=== PATIENT | male | born 1955 | race Caucasian/White ===

== ENCOUNTER 2021-11-14 06:30 | Inpatient (IN) ==
[2021-11-14] MEDS ORDERED: Lidocaine HCL 4 ML Topical Solution (Laryng-O-Jet Kit Sterile Pak) TP ONE (07:44)
[2021-11-14] MEDS ORDERED: Lidocaine -MPF 2% 5 ML VIAL ONE (07:47)
[2021-11-14] MEDS ORDERED: *HR* FentaNYL (PF) 100 MCG/2 ML VIAL ONE (07:47)
[2021-11-14] MEDS: Ringers Solution, Lactated 1,000 ML IVC SCH (07:49)
[2021-11-14] MEDS ORDERED: *HR* Succinylcholine 200 MG/10 ML VIAL IVP ONE (07:51)
[2021-11-14] MEDS ORDERED: Ondansetron 4 MG/2 ML VIAL ONE (07:52)
[2021-11-14] MEDS ORDERED: *HR* Rocuronium Bromide 50 MG/5 ML VIAL ONE (08:16)
[2021-11-14] MEDS ORDERED: EPHEDrine 50 MG/ML VIAL ONE (09:08)
[2021-11-14] MEDS ORDERED: Lidocaine -MPF 2% 2 ML VIAL IH ONE (09:17)
[2021-11-14] MEDS ORDERED: *HR* Vasopressin 20 UNIT/ML VIAL ONE (09:45)
[2021-11-14] MEDS ORDERED: Naloxone 0.4 MG/ML INJ IVP PRN (09:57)
[2021-11-14] MEDS ORDERED: Acetaminophen 325 MG TABLET PO PRN (09:57)
[2021-11-14] MEDS ORDERED: Albuterol 2.5 MG/3 ML NEBULIZER IH SCH (10:00)
[2021-11-14] MEDS ORDERED: Albuterol 2.5 MG/3 ML NEBULIZER IH PRN (10:29)
[2021-11-14] MEDS: predniSONE 20 MG TABLET PO SCH (10:38)
[2021-11-14] MEDS: Budesonide/Formoterol 160/4.5 1 PUFF INH IH SCH ×2 (11:03→22:42)
[2021-11-14 11:28] LABS: Basophils # 0.1 K/mcL (0.0-0.2); Basophils % 0.4 %; Eosinophils # 0.1 K/mcL (0.0-0.6); Eosinophils % 0.6 %; Hematocrit 34.6 % (37.5-50.1); Hemoglobin 10.1 g/dL (12.9-16.9); Immature Granulocytes % 1.5 % (0-4); Lymphocytes # 1.1 K/mcL (0.6-4.6); Lymphocytes % 8.2 %; Mean Corpuscular HGB Conc 29.2 g/dL (31.6-35.5); Mean Corpuscular Hemoglobin 20.8 pg (28.0-33.3); Mean Corpuscular Volume 71.2 fL (83.0-100.0); Mean Platelet Volume 9.2 fL (9.4-12.4); Monocytes # 0.6 K/mcL (0.0-1.3); Monocytes % 4.3 %; Neutrophils # 11.6 K/mcL (1.6-8.9); Platelet Count 379 K/mcL (140-400); Red Blood Count 4.86 M/mcL (4.19-5.50); White Blood Count 13.6 K/mcL (4.3-11.1)
[2021-11-14 11:47] LABS: Calcium 9.6 mg/dL (8.6-10.3); Potassium 4.7 mEq/L (3.5-5.1)
[2021-11-14] MEDS ORDERED: GuaiFENesin/Codeine Oral Soln 5 ML UDC PO SCH (12:00)
[2021-11-14] MEDS: GuaiFENesin/Codeine Oral Soln 5 ML UDC PO SCH ×2 (14:32→19:48)
[2021-11-14] MEDS: Sennosides/Docusate Sodium TABLET PO SCH (19:48)
[2021-11-15 02:04] LABS: Basophils % 0.1 %; Hematocrit 37.2 % (37.5-50.1); Hemoglobin 10.9 g/dL (12.9-16.9); Immature Granulocytes % 0.5 % (0-4); Lymphocytes # 0.9 K/mcL (0.6-4.6); Lymphocytes % 7.9 %; Mean Corpuscular HGB Conc 29.3 g/dL (31.6-35.5); Mean Corpuscular Hemoglobin 20.8 pg (28.0-33.3); Mean Corpuscular Volume 71.1 fL (83.0-100.0); Mean Platelet Volume 9.1 fL (9.4-12.4); Monocytes # 0.7 K/mcL (0.0-1.3); Monocytes % 6.4 %; Neutrophils # 9.6 K/mcL (1.6-8.9); Platelet Count 421 K/mcL (140-400); Red Blood Count 5.23 M/mcL (4.19-5.50); Red Cell Distribution Width 19.1 % (11.5-14.5); Segmented Neutrophils % 85.1 %; White Blood Count 11.2 K/mcL (4.3-11.1)
[2021-11-15 02:15] LABS: Calcium 9.5 mg/dL (8.6-10.3); Magnesium 2.1 mg/dL (1.6-2.6); Potassium 4.6 mEq/L (3.5-5.1)
[2021-11-15] MEDS ORDERED: *HR* Enoxaparin 40 MG/0.4 ML SYRINGE SQ SCH (06:00)
[2021-11-15] MEDS: Budesonide/Formoterol 160/4.5 1 PUFF INH IH SCH ×2 (07:39→20:11)
[2021-11-15] MEDS: GuaiFENesin/Codeine Oral Soln 5 ML UDC PO SCH ×2 (07:53→08:10)
[2021-11-15] MEDS: Sennosides/Docusate Sodium TABLET PO SCH ×2 (08:01→21:07)
[2021-11-15 08:02] LABS: Basophils % 0.1 %; Immature Granulocytes % 0.4 % (0-4); Mean Platelet Volume 9.3 fL (9.4-12.4)
[2021-11-15] MEDS: predniSONE 20 MG TABLET PO SCH (08:03)
[2021-11-15] MEDS: Ringers Solution, Lactated 1,000 ML IVC SCH (08:03)
[2021-11-15 08:04] LABS: Hematocrit 38.5 % (37.5-50.1); Hemoglobin 11.2 g/dL (12.9-16.9); Lymphocytes % 6.6 %; Mean Corpuscular HGB Conc 29.1 g/dL (31.6-35.5); Mean Corpuscular Hemoglobin 20.7 pg (28.0-33.3); Mean Corpuscular Volume 71.3 fL (83.0-100.0); Monocytes # 1.4 K/mcL (0.0-1.3); Monocytes % 9.1 %; Neutrophils # 13.2 K/mcL (1.6-8.9); Platelet Count 478 K/mcL (140-400); Red Cell Distribution Width 19.3 % (11.5-14.5); Segmented Neutrophils % 83.8 %; White Blood Count 15.8 K/mcL (4.3-11.1)
[2021-11-15 08:21] LABS: Calcium 9.9 mg/dL (8.6-10.3); Potassium 4.6 mEq/L (3.5-5.1)
[2021-11-15 08:43] LABS: Phosphorous 2.6 mg/dL (2.7-4.5)
[2021-11-15] MEDS ORDERED: Furosemide 20 MG TABLET PO SCH (09:00)
[2021-11-15] MEDS ORDERED: DilTIAZem CD (24hr) 240 MG CAP.ER.24H PO SCH (09:00)
[2021-11-15] MEDS ORDERED: Azithromycin 250 MG TABLET PO SCH (09:00)
[2021-11-15] MEDS ORDERED: DALIRESP 500MCG PO SCH (09:00)
[2021-11-15] MEDS ORDERED: lisinopriL 5 MG TABLET PO SCH (09:00)
[2021-11-15] MEDS ORDERED: GuaiFENesin/Codeine Oral Soln 5 ML UDC PO PRN (10:52)
[2021-11-15] MEDS ORDERED: Acetaminophen 325 MG TABLET PO PRN (12:04)
[2021-11-15] MEDS ORDERED: Albuterol 2.5 MG/3 ML NEBULIZER IH PRN (12:04)
[2021-11-15] MEDS ORDERED: Naloxone 0.4 MG/ML INJ IVP PRN (12:04)
[2021-11-15] MEDS: *HR* Rivaroxaban 10 MG TABLET PO SCH (16:11)
[2021-11-15] MEDS ORDERED: *HR* Rivaroxaban 10 MG TABLET PO SCH (17:00)
[2021-11-15] MEDS ORDERED: Melatonin 3 MG TABLET PO PRN (20:01)
[2021-11-16] MEDS: GuaiFENesin/Codeine Oral Soln 5 ML UDC PO PRN (03:41)
[2021-11-16 05:58] LABS: Basophils % 0.2 %; Eosinophils % 0.1 %; Segmented Neutrophils % 75.1 %
[2021-11-16 06:00] LABS: Hematocrit 34.9 % (37.5-50.1); Hemoglobin 10.1 g/dL (12.9-16.9); Immature Granulocytes % 0.7 % (0-4); Lymphocytes # 1.9 K/mcL (0.6-4.6); Lymphocytes % 11.4 %; Mean Corpuscular HGB Conc 28.9 g/dL (31.6-35.5); Mean Corpuscular Volume 72.4 fL (83.0-100.0); Mean Platelet Volume 9.4 fL (9.4-12.4); Monocytes # 2.1 K/mcL (0.0-1.3); Monocytes % 12.5 %; Neutrophils # 12.4 K/mcL (1.6-8.9); Platelet Count 424 K/mcL (140-400); Red Blood Count 4.82 M/mcL (4.19-5.50); Red Cell Distribution Width 19.2 % (11.5-14.5); White Blood Count 16.5 K/mcL (4.3-11.1)
[2021-11-16 06:36] LABS: Anisocytosis 1+ (Not Present); Hypochromasia Present (Not Present); Ovalocytes 1+ (Not Present); Platelet Estimate Normal (Normal)
[2021-11-16 06:52] LABS: Calcium 9.2 mg/dL (8.6-10.3)
[2021-11-16] MEDS: Budesonide/Formoterol 160/4.5 1 PUFF INH IH SCH ×2 (07:25→22:45)
[2021-11-16] MEDS: predniSONE 20 MG TABLET PO SCH (09:00)
[2021-11-16] MEDS ORDERED: Furosemide 20 MG TABLET PO SCH (09:00)
[2021-11-16] MEDS: DilTIAZem CD (24hr) 240 MG CAP.ER.24H PO SCH (09:00)
[2021-11-16] MEDS: Sennosides/Docusate Sodium TABLET PO SCH ×2 (09:01→21:47)
[2021-11-16] MEDS: Azithromycin 250 MG TABLET PO SCH (09:01)
[2021-11-16] MEDS: Furosemide 20 MG TABLET PO SCH (09:01)
[2021-11-16] MEDS: lisinopriL 5 MG TABLET PO SCH (09:02)
[2021-11-16] MEDS: *HR* Rivaroxaban 10 MG TABLET PO SCH (21:47)
[2021-11-17] MEDS ORDERED: *HR* Metoprolol 5 MG/5 ML VIAL IVP ONE ×2 (00:56→08:39)
[2021-11-17 06:03] LABS: Basophils % 0.2 %; Hematocrit 38.3 % (37.5-50.1)
[2021-11-17 06:05] LABS: Eosinophils # 0.1 K/mcL (0.0-0.6); Eosinophils % 0.3 %; Hemoglobin 11.1 g/dL (12.9-16.9); Immature Granulocytes % 0.7 % (0-4); Lymphocytes # 2.9 K/mcL (0.6-4.6); Lymphocytes % 16.4 %; Mean Corpuscular Hemoglobin 20.9 pg (28.0-33.3); Mean Corpuscular Volume 72.3 fL (83.0-100.0); Mean Platelet Volume 9.5 fL (9.4-12.4); Monocytes % 11.5 %; Neutrophils # 12.4 K/mcL (1.6-8.9); Platelet Count 472 K/mcL (140-400); Red Cell Distribution Width 19.1 % (11.5-14.5); Segmented Neutrophils % 70.9 %; White Blood Count 17.5 K/mcL (4.3-11.1)
[2021-11-17] MEDS: GuaiFENesin/Codeine Oral Soln 5 ML UDC PO PRN (06:07)
[2021-11-17 06:40] LABS: Anisocytosis 1+ (Not Present); Hypochromasia Present (Not Present)
[2021-11-17 06:41] LABS: Ovalocytes 1+ (Not Present)
[2021-11-17 06:57] LABS: BUN/Creatinine Ratio 24 (6-26); Blood Urea Nitrogen 21 mg/dL (8-23); Calcium 9.5 mg/dL (8.6-10.3); Carbon Dioxide 31 mEq/L (23-29); Chloride 102 mEq/L (98-107); Glucose 89 mg/dL (70-105); Osmolality,Calculated 290 (280-300); Potassium 3.8 mEq/L (3.5-5.1); Sodium 139 mEq/L (136-145)
[2021-11-17] MEDS: predniSONE 20 MG TABLET PO SCH (07:19)
[2021-11-17] MEDS: Azithromycin 250 MG TABLET PO SCH (07:19)
[2021-11-17] MEDS: Sennosides/Docusate Sodium TABLET PO SCH ×2 (07:20→21:03)
[2021-11-17] MEDS: Furosemide 20 MG TABLET PO SCH (07:20)
[2021-11-17] MEDS: DilTIAZem CD (24hr) 240 MG CAP.ER.24H PO SCH (07:20)
[2021-11-17] MEDS: lisinopriL 5 MG TABLET PO SCH (07:21)
[2021-11-17] MEDS: Budesonide/Formoterol 160/4.5 1 PUFF INH IH SCH ×2 (08:14→20:27)
[2021-11-17] MEDS ORDERED: Ipratropium/Albuterol Neb 3 ML ONE (11:47)
[2021-11-17] MEDS: Ipratropium/Albuterol Neb 3 ML IH SCH ×3 (11:49→20:27)
[2021-11-17] MEDS: *HR* Rivaroxaban 10 MG TABLET PO SCH (16:26)
[2021-11-17] MEDS: *HR* Digoxin 0.5 MG/2 ML AMPUL IVP SCH ×2 (16:26→20:57)
[2021-11-18] MEDS: *HR* Digoxin 0.5 MG/2 ML AMPUL IVP SCH ×2 (01:31→07:05)
[2021-11-18 02:49] LABS: Basophils # 0.1 K/mcL (0.0-0.2); Basophils % 0.3 %; Eosinophils # 0.1 K/mcL (0.0-0.6); Eosinophils % 0.5 %; Hematocrit 36.6 % (37.5-50.1); Hemoglobin 10.7 g/dL (12.9-16.9); Immature Granulocytes % 0.5 % (0-4); Lymphocytes % 17.9 %; Mean Corpuscular HGB Conc 29.2 g/dL (31.6-35.5); Mean Corpuscular Hemoglobin 20.9 pg (28.0-33.3); Mean Corpuscular Volume 71.3 fL (83.0-100.0); Mean Platelet Volume 9.7 fL (9.4-12.4); Monocytes % 12.3 %; Neutrophils # 11.3 K/mcL (1.6-8.9); Platelet Count 489 K/mcL (140-400); Red Blood Count 5.13 M/mcL (4.19-5.50); Segmented Neutrophils % 68.5 %; White Blood Count 16.6 K/mcL (4.3-11.1)
[2021-11-18 03:10] LABS: Calcium 8.8 mg/dL (8.6-10.3); Potassium 3.8 mEq/L (3.5-5.1)
[2021-11-18] MEDS: Ipratropium/Albuterol Neb 3 ML IH SCH ×2 (04:06→10:35)
[2021-11-18] MEDS: Azithromycin 250 MG TABLET PO SCH (07:03)
[2021-11-18] MEDS: DilTIAZem CD (24hr) 240 MG CAP.ER.24H PO SCH (07:03)
[2021-11-18] MEDS: predniSONE 20 MG TABLET PO SCH (07:03)
[2021-11-18] MEDS: Furosemide 20 MG TABLET PO SCH (07:04)
[2021-11-18] MEDS: Sennosides/Docusate Sodium TABLET PO SCH ×2 (07:05→19:25)
[2021-11-18] MEDS ORDERED: Furosemide 40 MG in 0.9 % Sodium Chloride 50 ML IV SCH (10:00)
[2021-11-18] MEDS: Budesonide/Formoterol 160/4.5 1 PUFF INH IH SCH ×2 (10:35→22:15)
[2021-11-18] MEDS: *HR* Digoxin 0.125 MG TABLET PO SCH (11:26)
[2021-11-18] MEDS: Furosemide 40 MG/4 ML VIAL IVP SCH (11:26)
[2021-11-18] MEDS ORDERED: Ipratropium/Albuterol Neb 3 ML IH SCH (15:00)
[2021-11-18] MEDS: *HR* Rivaroxaban 10 MG TABLET PO SCH (17:18)
[2021-11-18] MEDS ORDERED: Levalbuterol Neb 1.25 MG/3 ML IH PRN (18:10)
[2021-11-18] MEDS: Levalbuterol Neb 1.25 MG/3 ML IH SCH (22:16)
[2021-11-19 02:57] LABS: Basophils % 0.3 %; Eosinophils # 0.2 K/mcL (0.0-0.6); Hematocrit 35.8 % (37.5-50.1); Hemoglobin 10.4 g/dL (12.9-16.9); Immature Granulocytes % 0.8 % (0-4); Lymphocytes # 3.1 K/mcL (0.6-4.6); Mean Corpuscular HGB Conc 29.1 g/dL (31.6-35.5); Mean Corpuscular Hemoglobin 20.7 pg (28.0-33.3); Mean Corpuscular Volume 71.3 fL (83.0-100.0); Mean Platelet Volume 9.4 fL (9.4-12.4); Monocytes # 1.5 K/mcL (0.0-1.3); Monocytes % 9.7 %; Neutrophils # 10.1 K/mcL (1.6-8.9); Platelet Count 433 K/mcL (140-400); Red Blood Count 5.02 M/mcL (4.19-5.50); Segmented Neutrophils % 67.2 %
[2021-11-19 03:16] LABS: Calcium 8.7 mg/dL (8.6-10.3); Magnesium 2.1 mg/dL (1.6-2.6); Potassium 3.5 mEq/L (3.5-5.1)
[2021-11-19] MEDS: Levalbuterol Neb 1.25 MG/3 ML IH SCH ×2 (07:49→22:32)
[2021-11-19] MEDS: Budesonide/Formoterol 160/4.5 1 PUFF INH IH SCH ×2 (07:50→22:31)
[2021-11-19] MEDS: *HR* Digoxin 0.125 MG TABLET PO SCH (08:35)
[2021-11-19] MEDS: Sennosides/Docusate Sodium TABLET PO SCH ×2 (08:40→20:42)
[2021-11-19] MEDS ORDERED: DilTIAZem CD (24hr) 300 MG CAP.ER.24H PO SCH (09:00)
[2021-11-19] MEDS: Furosemide 40 MG/4 ML VIAL IVP SCH (10:13)
[2021-11-19] MEDS ORDERED: 0.9 % Sodium Chloride 500 ML IVC ONE (15:27)
[2021-11-19] MEDS: *HR* Rivaroxaban 10 MG TABLET PO SCH (16:22)
[2021-11-20 01:44] LABS: Basophils # 0.1 K/mcL (0.0-0.2); Basophils % 0.4 %; Eosinophils # 0.3 K/mcL (0.0-0.6); Eosinophils % 1.8 %; Hematocrit 33.6 % (37.5-50.1); Immature Granulocytes % 0.7 % (0-4); Lymphocytes # 2.6 K/mcL (0.6-4.6); Lymphocytes % 18.2 %; Mean Corpuscular HGB Conc 29.8 g/dL (31.6-35.5); Mean Corpuscular Hemoglobin 21.3 pg (28.0-33.3); Mean Corpuscular Volume 71.5 fL (83.0-100.0); Mean Platelet Volume 9.5 fL (9.4-12.4); Monocytes # 1.6 K/mcL (0.0-1.3); Monocytes % 11.1 %; Neutrophils # 9.6 K/mcL (1.6-8.9); Platelet Count 416 K/mcL (140-400); Red Cell Distribution Width 18.8 % (11.5-14.5); Segmented Neutrophils % 67.8 %; White Blood Count 14.1 K/mcL (4.3-11.1)
[2021-11-20 03:28] LABS: Calcium 8.8 mg/dL (8.6-10.3); Potassium 3.9 mEq/L (3.5-5.1)
[2021-11-20] MEDS: Sennosides/Docusate Sodium TABLET PO SCH ×2 (07:57→20:06)
[2021-11-20] MEDS: DilTIAZem CD (24hr) 240 MG CAP.ER.24H PO SCH (08:05)
[2021-11-20] MEDS: *HR* Digoxin 0.125 MG TABLET PO SCH (08:05)
[2021-11-20] MEDS ORDERED: Iopamidol - 370 500 ML MLS IVP ONE (10:41)
[2021-11-20] MEDS: Budesonide/Formoterol 160/4.5 1 PUFF INH IH SCH ×2 (11:17→21:46)
[2021-11-20] MEDS: Levalbuterol Neb 1.25 MG/3 ML IH SCH ×2 (11:18→21:46)
[2021-11-20] MEDS: *HR* Rivaroxaban 10 MG TABLET PO SCH (17:28)
[2021-11-21 00:38] VITALS: O2SAT 96
[2021-11-21 02:40] LABS: Basophils # 0.1 K/mcL (0.0-0.2); Basophils % 0.4 %; Eosinophils # 0.2 K/mcL (0.0-0.6); Eosinophils % 1.8 %; Hematocrit 33.1 % (37.5-50.1); Hemoglobin 9.7 g/dL (12.9-16.9); Immature Granulocytes % 0.5 % (0-4); Lymphocytes # 2.5 K/mcL (0.6-4.6); Lymphocytes % 18.9 %; Mean Corpuscular HGB Conc 29.3 g/dL (31.6-35.5); Mean Corpuscular Volume 71.5 fL (83.0-100.0); Mean Platelet Volume 9.7 fL (9.4-12.4); Monocytes # 1.5 K/mcL (0.0-1.3); Monocytes % 11.9 %; Neutrophils # 8.6 K/mcL (1.6-8.9); Platelet Count 384 K/mcL (140-400); Red Blood Count 4.63 M/mcL (4.19-5.50); Red Cell Distribution Width 18.6 % (11.5-14.5); Segmented Neutrophils % 66.5 %
[2021-11-21 03:39] LABS: BUN/Creatinine Ratio 28 (6-26); Blood Urea Nitrogen 24 mg/dL (8-23); Calcium 8.8 mg/dL (8.6-10.3); Carbon Dioxide 32 mEq/L (23-29); Chloride 104 mEq/L (98-107); Glucose 86 mg/dL (70-105); Magnesium 2.2 mg/dL (1.6-2.6); Osmolality,Calculated 293 (280-300); Phosphorous 3.3 mg/dL (2.7-4.5); Potassium 4.6 mEq/L (3.5-5.1); Sodium 140 mEq/L (136-145)
[2021-11-21 04:06] VITALS: BP 106/50; TEMP 98.8
[2021-11-21 05:09] VITALS: PULSE 57
[2021-11-21] MEDS: Sennosides/Docusate Sodium TABLET PO SCH (09:18)
[2021-11-21] MEDS: *HR* Digoxin 0.125 MG TABLET PO SCH (09:18)
[2021-11-21] MEDS: DilTIAZem CD (24hr) 240 MG CAP.ER.24H PO SCH (09:18)
[2021-11-21] MEDS: Levalbuterol Neb 1.25 MG/3 ML IH SCH (10:51)
[2021-11-21] MEDS: Budesonide/Formoterol 160/4.5 1 PUFF INH IH SCH (10:51)
== END 2021-11-21 11:20 | disposition home or self-care (01) | DRG 164 ==
LOC: SAMDAY 06:30 → ICNU 09:35 → SUATTDRO 11-15 12:09 → ICNU 11-15 12:09 → 2NNU 11-15 23:12
PROVIDERS: ADMIT Internal Medicine Pulmonary Disease; ATTEND Internal Medicine